=== PATIENT | female | born 1965 | race Caucasian/White ===

== ENCOUNTER → 2022-09-30 | Outpatient (CLI) | payer OTHER, SELFPAY ==
--- NOTE | 2022-09-30 15:23 | CT_ITS ---
HISTORY: PRE OP WASC. TECHNIQUE: Helically acquired images were obtained of the right lower extremity without intravenous contrast utilizing MAO protocol. 2-D reformats were performed by the technologist. A radiation dose optimization technique was used for this scan. 1124 images. COMPARISON: None. FINDINGS: BONES: No acute osseous abnormality identified. JOINT SPACES: Normal alignment. Mild degenerative changes of the knee. Mild knee joint effusion. SOFT TISSUES: Venous varicosities noted. Mild subcutaneous edema of the ankle and foot. CT/Extremity Lower without Contra IMPRESSION: CT right knee for operative planning. Degenerative changes of the right knee with mild joint effusion. Electronically Signed: Nidia Conteh MD at 13:00 EST ,
[2022-09-30 16:57] LABS: Hematocrit 42.1 % (37-47); Hemoglobin 13.5 g/dL (12.0-15.0); Mean Corp Hgb Conc 32.1 g/dL (32-36); Mean Corpuscular Hgb 30.5 pg (27.0-32.0); Mean Platelet Vol. 9.4 fl (6.2-12.0); Platelet Count 263 K/mm3 (150-450); RBC Distribution Width CV 12.6 % (11.6-14.6); RBC Distribution Width SD 43.8 fl (35.1-43.9); Red Blood Count 4.43 M/mm3 (4.2-5.4); White Blood Count 8.4 K/mm3 (4.4-11.0)
[2022-09-30 17:17] LABS: Anion Gap 6 (5-15); BUN 20 mg/dL (7-18); BUN/Creat Ratio 29.2 RATIO (10-20); Calcium,Total 9.2 mg/dL (8.5-10.1); Chloride 108 mmol/L (98-107); Creatinine, Serum 0.68 mg/dL (0.55-1.02); EST Glomerular Filtration Rate 94 mL/min (>60); Est Glom Filt Rate - Afr Amer 113 mL/min (>60); Glucose 93 mg/dL (74-106); Potassium 4.3 mmol/L (3.5-5.1); Sodium Level 142 mmol/L (136-145)
[2022-09-30 17:24] LABS: Hemoglobin A1c 5.3 % (3.8-5.6)
== END | disposition home or self-care (01) ==
PROVIDERS: Referring Provider Orthopaedic Surgery; Visit Provider Orthopaedic Surgery
DX: Z01.818 Encounter for other preprocedural examination (principal); M17.11 Unilateral primary osteoarthritis, right knee
CPT/HCPCS: 36415; 73700; 80048; 83036; 85027; 93005

== ENCOUNTER → 2022-10-24 | Outpatient (CLI) | payer OTHER, SELFPAY ==
--- NOTE | 2022-10-24 09:00 | KNEE_PTH ---
PATIENT: BETY ALCANTAR LOC: [facility] U#:[id number] AGE/SX: 57/F ROOM: RE10/24/[address]: Dr. Thomas Murphy DO : 1965 BED: DIS: 10/24/2022 SPEC #: [id number] RECD: 10/24/22 15:01 STATUS: BROOK REQ #: [id number] ARTEMIO: 10/24/22 09:[address]: Thomas Murphy DEPT: SURGICAL PATHOLOGY RECD BY: Saira Doss ENTERED: 10/25/22 08:53 SP TYPE: TOTAL KNEE OTHR DR: No Primary Care Phys [facility] Tissues: Knee, NOS Procedures: Decalcification bone/plaque Surgery Specimen Level IV HEADER OPERATION: Right total knee arthroplasty, robotic PRE-OP DIAGNOSIS: Unilateral primary osteoarthritis right knee TISSUE SUBMITTED: Bone and soft tissue right knee MICROSCOPIC DIAGNOSIS Bone and tissue, right knee, total knee replacement/resection: Pieces of bone with degenerative osteoarthritic changes. Fibroadipose tissue, fibroconnective tissue and reactive synovial tissue. ASHLEY:isis 10/28/2022 MICROSCOPIC DESCRIPTION Slides are reviewed. GROSS DESCRIPTION Received is one container designated right knee bone and soft tissue. The specimen consists of multiple fragments of lay-yellow bone measuring in aggregate 9.5 x 10.0 x 3.0 cm. Also in the specimen container are multiple fragments of yellow-white soft tissue measuring in aggregate 3.0 x 2.0 x 0.5 cm. A number of bony fragments contain articular surfaces consistent with tibial plateau and femoral condyle and displaying prominent osteophyte formation, eburnation and bone erosion. Registered Nursing Professor sections are submitted in two cassettes as follows: 1 - soft tissue, submitted in entirety, 2 - bone after decalcification. / ASHLEY:isis 10/25/2022 TC:5 CPT: 41162, 42546
== END | disposition home or self-care (01) ==
PROVIDERS: Visit Provider Orthopaedic Surgery
DX: M17.11 Unilateral primary osteoarthritis, right knee (principal)
CPT/HCPCS: 88305; 88311